=== PATIENT | male | born 1975 | race African-American/Black ===

== ENCOUNTER 2025-01-28 09:21 | Emergency (ER) | payer OTHER ==
[2025-01-28] MEDS ORDERED: Ketorolac Tromethamine 30 MG (1 mL) VIAL ONE (10:50)
[2025-01-28 10:53] LABS: #Basophils Less than 0.03 10x3/uL (0.0-0.2); #Eosinophils 0.16 10x3/uL (0.0-0.7); #Monocytes 0.75 10x3/uL (0.11-0.59); #Neutrophils 2.40 10x3/uL (1.40-6.50); %Basophils 0.4 % (0.0-1.0); %Eosinophils 3.5 % (0.0-10.0); %Lymphocytes 26.2 % (21.0-51.0); %Monocytes 16.5 % (0.0-10.0); %Neutrophils 53.0 % (42.0-75.0); Hematocrit 32.5 % (42.0-52.0); Hemoglobin 10.4 g/dL (14.0-18.0); Mean Corpuscular Hemoglobin 30.6 pg (27.0-31.0); Mean Corpuscular Volume 95.6 fL (78.0-98.0); Platelet Count 349 10x3/uL (130-400); Red Blood Cell (RBC) Count 3.40 mill/uL (4.70-6.10); White Blood Cell (WBC) Count 4.54 10x3/uL (4.8-10.8)
[2025-01-28 11:14] LABS: Magnesium 2.0 mg/dL (1.6-2.6)
[2025-01-28 11:15] LABS: ALT (SGPT) 54 U/L (Less than 45); AST (SGOT) 67 U/L (11-34); Acetaminophen Less than 10 mcg/mL (Less than 10); Albumin 3.7 g/dL (3.1-4.5); Alkaline Phosphatase 72 U/L (40-110); Anion Gap 14 mmol/L (10-20); BUN (Urea Nitrogen) 18 mg/dL (8.9-20.6); Bilirubin, Total 0.4 mg/dL (0.3-1.2); CK (CPK) 383 U/L (30-200); Calc. Creatinine Clearance 0 mL/min (70-130); Calcium 8.8 mg/dL (7.8-10.44); Carbon Dioxide 19 mmol/L (22-29); Chloride 110 mmol/L (98-107); Globulin 3.2 g/dL (2.4-3.5); Glucose 81 mg/dL (70-105); Potassium 4.6 mmol/L (3.5-5.1); Salicylate Less than 8.0 mg/dL (Less than 8.0); Sodium 138 mmol/L (136-145)
[2025-01-28 11:18] LABS: Cocaine Metabolite Screen Negative (Negative); THC/Cannabinoid Screen Negative (Negative); Tricyclic Screen Negative (Negative)
[2025-01-28] MEDS ORDERED: levETIRAcetam 500 MG TAB PO SCH (12:45)
[2025-01-28] MEDS ORDERED: levETIRAcetam 500 MG (5 mL) VIAL ONE (13:09)
[2025-01-28] MEDS ORDERED: Divalproex Sodium 500 MG ER.TAB ONE (13:51)
== END 2025-01-28 14:54 ==
LOC: EEVIPCON 09:21 → ERS 09:21
DX: G40.909 Epilepsy, unspecified, not intractable, without status epilepticus (principal); I25.2 Old myocardial infarction; Z86.73 Personal history of transient ischemic attack (TIA), and cerebral infarction without residual deficits
CPT/HCPCS: 36415; 80053; 80164; 80177; 80306; 80307; 82550; 83605; 83735; 85025; 86141; 93005; 96374; 96375; J1885; J1953